=== PATIENT | female | born 1980 | race American Indian/Alaskan Native ===

== ENCOUNTER 2018-10-19 19:49 | Emergency (ER) | payer MEDICAID ==
--- NOTE | 2018-10-19 20:22 | Emergency Department Report ---
Chief Complaint: Head Injury Stated Complaint: LEFT ARM PAIN Time Seen by Provider: 10/19/18 20:20 - HPI History of Present Illness: pt states that the ice machine fell onto the left head also left shoulder pain no N/V, no LOC states she got light-headed states seeing "black dots" in left eye no numbness, no weakness no PMHx no medications on a daily basis - Exam Vital Signs: Vital Signs 10/19/18 10/19/18 20:01 20:17 Temperature 99.5 F 99.5 F Pulse Rate 97 H 95 H Respiratory 18 18 Rate Blood Pressure 119/69 119/69 O2 Sat by Pulse 99 99 Oximetry MSE screening note: Focused history and physical exam performed. Due to findings the following was ordered: CT head and xr left shoulder ED Disposition for MSE Condition: Stable
--- NOTE | 2018-10-19 21:41 | XRay Report ---
PROCEDURE: XR SHOULDER 2+V LT TECHNIQUE: Left shoulder radiographs, three views. HISTORY: ice machine fell onto her COMPARISONS: None . FINDINGS: Fracture (s) and/or Dislocation(s): None . Joint space(s): Normal . Soft tissues: Normal . Bone mineralization: Normal . Foreign bodies: None . IMPRESSION: Normal Examination . This document is electronically signed by Enrique Yeager MD., October 19 2018 09:39:39 PM ET
--- NOTE | 2018-10-19 22:41 | Cat Scan Report ---
PROCEDURE: CT HEAD/BRAIN WO CON TECHNIQUE: Computerized tomography of the head was performed without contrast material. CT DOSE LENGTH PRODUCT: mGycm HISTORY: ice machine fell onto her COMPARISONS: None . FINDINGS: Skull and scalp: Normal . Paranasal sinuses: Normal . Ventricles and subarachnoid spaces: Cavum septum vergae and cavum septum pellucidum are identified w hich are normal variants. . Cerebrum: No evidence of hemorrhage, acute infarction or mass . Cerebellum and brainstem: No evidence of hemorrhage, acute infarction or mass . Vasculature: Normal . Other: None . ASPECTS: 10 IMPRESSION: Normal Examination . This document is electronically signed by Enrique Yeager MD., October 19 2018 10:39:08 PM ET
[2018-10-19] MEDS ORDERED: NORCO 5/325 PO ONE (22:52)
[2018-10-19] MEDS ORDERED: IBUPROFEN PO ONE (22:52)
--- NOTE | 2018-10-19 22:56 | Emergency Department Report ---
ED Head Trauma HPI - General Chief complaint: Head Injury Stated complaint: LEFT ARM PAIN Time Seen by Provider: 10/19/18 20:20 Source: patient Mode of arrival: Ambulatory Limitations: No Limitations - History of Present Illness -: Sudden Loss of Consciousness: no Previous Trauma to this Area: No Place: home Severity: mild Provoking factors: none known - Related Data Previous Rx's Medication Instructions Recorded Last Taken Type Ibuprofen [Motrin] 800 mg PO Q8HR PRN #20 tablet 10/19/18 Unknown Rx Allergies/Adverse reactions: Allergies Allergy/AdvReac Type Severity Reaction Status Date / Time No Known Allergies Allergy Unverified 10/19/18 23:14 ED Review of Systems ROS: Stated complaint: LEFT ARM PAIN Other details as noted in HPI Comment: All other systems reviewed and negative ED Past Medical Hx - Past Medical History Previous Medical History?: No - Surgical History Past Surgical History?: No - Family History Family history: no significant - Social History Smoking Status: Never Smoker - Medications Home Medications: Home Medications Medication Instructions Recorded Confirmed Last Taken Type Ibuprofen [Motrin] 800 mg PO Q8HR PRN #20 tablet 10/19/18 Unknown Rx ED Physical Exam - General Limitations: No Limitations General appearance: alert, in no apparent distress - Head Head exam: Present: atraumatic, normocephalic - Eye Eye exam: Present: normal appearance, PERRL - ENT ENT exam: Present: mucous membranes moist - Neck Neck exam: Present: normal inspection - Respiratory Respiratory exam: Present: normal lung sounds bilaterally - Cardiovascular Cardiovascular Exam: Present: regular rate - GI/Abdominal GI/Abdominal exam: Present: soft, normal bowel sounds - Rectal Rectal exam: Present: deferred - Extremities Exam Extremities exam: Present: normal inspection, full ROM - Back Exam Back exam: Present: normal inspection, full ROM - Neurological Exam Neurological exam: Present: alert, oriented X3, CN II-XII intact, normal gait - Psychiatric Psychiatric exam: Present: normal affect, normal mood - Skin Skin exam: Present: warm, dry, intact ED Course Vital Signs 10/19/18 10/19/18 10/19/18 20:01 20:17 23:15 Temperature 99.5 F 99.5 F 98.7 F Pulse Rate 97 H 95 H 80 Respiratory 18 18 16 Rate Blood Pressure 119/69 119/69 Blood Pressure 120/69 [Left] O2 Sat by Pulse 99 99 97 Oximetry 10/19/18 23:28 Temperature Pulse Rate Respiratory 16 Rate Blood Pressure Blood Pressure [Left] O2 Sat by Pulse Oximetry - Radiology Data Radiology results: image reviewed - Medical Decision Making CT normal xray shoulder normal no focal neuro def full rom shoulder medicated for pain dc home with dc plan of care Vital Signs 10/19/18 10/19/18 20:01 20:17 Temperature 99.5 F 99.5 F Pulse Rate 97 H 95 H Respiratory 18 18 Rate Blood Pressure 119/69 119/69 O2 Sat by Pulse 99 99 Oximetry - Core Measures Measure Exclusions: not indicated - NEXUS Criteria Focal neurological deficit present: No Midline spinal tenderness present: No Altered level of consciousness: No Intoxication present: No Distracting injury present: No NEXUS results: C-Spine can be cleared clinically by these results. Imaging is not required. Critical care attestation.: If time is entered above; I have spent that time in minutes in the direct care of this critically ill patient, excluding procedure time. ED Disposition Clinical Impression: Contusion, CHI (closed head injury) Disposition: DC-01 TO HOME OR SELFCARE Is pt being admited?: No Does the pt Need Aspirin: No Condition: Stable Instructions: Contusion in Adults (ED) Additional Instructions: alternate ice/heat med as ordered diet as tolerated activity as tolerated follow up with pcp referral below CT AND XRAY NORMAL TODAY Prescriptions: Ibuprofen [Motrin] 800 mg PO Q8HR PRN #20 tablet PRN Reason: Pain , Severe (7-10) Referrals: [facility] [Outside] - 3-5 Days Time of Disposition: 22:55
[2018-10-21 18:01] VITALS: BP 120/69
== END 2018-10-19 23:35 | disposition home or self-care (01) ==
LOC: ED 19:49
DX: S00.93XA Contusion of unspecified part of head, initial encounter (principal); W18.30XA Fall on same level, unspecified, initial encounter; Y93.89 Activity, other specified; Y92.89 Other specified places as the place of occurrence of the external cause; Y99.8 Other external cause status
CPT/HCPCS: 70450